=== PATIENT | male | born 1955 | race Caucasian/White ===

== ENCOUNTER 2017-09-01 15:59 | Inpatient (IN) | payer OTHER ==
[~2017-09-01 15:59] MED LIST: Iopamidol 370 76% 100 ML VIAL ONE; Iopamidol 370 76% 50 ML VIAL FS ONE
[2017-09-01] MEDS ORDERED: Lidocaine 1% (PF) 30 ML VIAL ONE (17:32)
[2017-09-01] MEDS ORDERED: Heparin 10,000 UNITS/1 ML VIAL ONE (17:42)
[2017-09-01] MEDS ORDERED: Aggrastat 12.5 MG/250 ML 250 ML ONE (19:22)
[2017-09-01] MEDS ORDERED: Aggrastat 12.5 MG/250 ML 12.5 MG in Premix Bag 1 BAG IVPB SCH (19:52)
[2017-09-01 20:13] VITALS: BMI 27.2
[2017-09-01] MEDS ORDERED: Zolpidem Tartrate 5 MG TAB PO PRN (20:18)
[2017-09-01] MEDS ORDERED: Nitroglycerin 0.4 MG TAB (25 Tab Bottle) SL PRN (20:18)
[2017-09-01] MEDS ORDERED: Acetaminophen/Codeine 30-300mg Tablet PO PRN (20:18)
[2017-09-01] MEDS ORDERED: Heparin 25,000 units/D5W 500 ML IVPB SCH (20:18)
[2017-09-01] MEDS ORDERED: Milk Of Magnesia 30 ML UDCUP PO PRN (20:18)
[2017-09-01] MEDS ORDERED: Heparin 10,000 UNITS/ 10 ML VIAL SLOW IVP SCH (20:18)
[2017-09-01] MEDS ORDERED: DOPamine 400 MG/D5W 250 ML 250 ML ONE (20:34)
[2017-09-01 20:36] LABS: Hemoglobin 12.9 g/dL (14.0-18.0); Platelet Count 194 thou/uL (130-400)
[2017-09-01] MEDS ORDERED: DOPamine 400 MG/D5W 250 ML 250 ML IVPB PRN (20:56)
[2017-09-01] MEDS ORDERED: Sodium Chloride 0.9% 500 ML IVPB SCH (21:00)
[2017-09-01] MEDS ORDERED: TICAGRELOR 90 MG TABLET PO SCH (21:00)
[2017-09-01] MEDS ORDERED: Atorvastatin Calcium 20 MG TAB PO SCH (21:00)
[2017-09-01] MEDS: Metoprolol Tartrate 25 MG TAB PO SCH (21:05)
[2017-09-01] MEDS: Carvedilol 3.125 MG TAB PO SCH (21:05)
[2017-09-01 21:19] LABS: Troponin I 126.935 ng/mL (< 0.028)
[2017-09-01] MEDS: TICAGRELOR 90 MG TABLET PO SCH (21:20)
[2017-09-01] MEDS: Sodium Chloride 0.9% 1,000 ML IV SCH (21:26)
--- NOTE | 2017-09-02 00:10 | HP ---
INDICATION FOR ADMISSION: A 62-year-old patient with acute anterior myocardial ST segment elevation infarction. HISTORY OF PRESENT ILLNESS: This is a 62-year-old gentleman who had no previous cardiac history, but does have a history of hypertension, who was out cutting his grass today and developed chest pain, p resented to the emergency room and was found to be having an acute ST segment elevation myocardial in farction in the anterior leads with inferior reciprocal changes. He was given in the emergency room, heparin and TNK. He continued to have some discomfort. He then was transferred to our facility. E n route with helicopter, he did have some relief of his pain, but approximately 2-3 minutes prior to arriving here, his pain came back, even more severe than previously. When he presented to the emerge ncy room here, his EKG still showed acute ST segment elevation in the anterior leads with reciprocal changes inferiorly. Then he was advised to undergo emergent cardiac catheterization. He had been gonzalez ving some discomfort for the last couple weeks and thought he had some acid reflux. PAST MEDICAL HISTORY: Significant for hypercholesterolemia and hernia repair. He has no early famil y history of coronary artery disease. REVIEW OF SYSTEMS: He wears glasses. He had no pulmonary, GI or complaints except for some possi ble gastroesophageal reflux disease. Remaining of the 12 point review of systems is unremarkable. ALLERGIES: None. MEDICATIONS: He only takes 1 medicine for blood pressure, he is uncertain as to what this is. PHYSICAL EXAMINATION: GENERAL: Reveals a well-developed, well-nourished gentleman who is obviously distressed and having c hest pain, appears to be short of breath and diaphoretic. VITAL SIGNS: Blood pressure was 138/91 in the emergency room, heart rate is 113. HEENT: Shows head to be normocephalic, atraumatic. Carotid pulses are present. I did not hear any bruits. CHEST: Actually clear. I do not any rales, rhonchi or wheezing. CARDIOVASCULAR: Reveals tachycardia with regular rhythm, but no significant murmurs, heaves, thrills , bruits or rubs. ABDOMEN: Flat and soft, and nontender. Positive bowel sounds are present. EXTREMITIES: Showed no clubbing, cyanosis or edema. Pedal pulses are present. NEUROLOGIC: The patient appears to be fully intact. LABORATORY DATA: Still pending. His EKG showed acute ST segment elevation. At this time, due the p dionient's urgent situation. He will be taken emergently to the cardiac slab stripper. I explained to him the procedure and the risks to include bleeding, infection, possibly a myocardial infarction, CVA, re nal insufficiency, allergic contrast reaction, and the possibility of . He understands and agre ed to proceed. Actually his laboratory data show a troponin I of 0.011 with MB of 1.2 taken at 2:45 hours this afternoon. His potassium was 3.6 with creatinine of 1.2 and hemoglobin of 15.3. IMPRESSION: 1. Acute anterior myocardial infarction and otherwise healthy patient. He will be advised to underg o emergent cardiac catheterization 2. History of hypertension. This will be dealt while he is in the hospital, he will [facility] physician. His primary care physician is Dr. Mckenzie in [place].
[2017-09-02] MEDS: Sodium Chloride 0.9% 1,000 ML IV SCH ×2 (07:22→18:09)
[2017-09-02 07:54] LABS: #Lymphocytes 0.9 thou/uL (1.20-3.40); #Monocytes 0.7 thou/uL (0.11-0.59); #Neutrophils 9.3 thou/uL (1.40-6.50); %Eosinophils 0.1 % (0.0-10.0); %Lymphocytes 8.3 % (21.0-51.0); %Monocytes 6.2 % (0.0-10.0); %Neutrophils 85.5 % (42.0-75.0); Hemoglobin 12.9 g/dL (14.0-18.0); Mean Corpuscular HGB CONC 32.6 g/dL (32.0-36.0); Mean Corpuscular Hemoglobin 28.5 pg (27.0-31.0); Mean Corpuscular Volume 87.4 fl (80.0-94.0); Mean Platelet Volume 8.4 fL (7.4-10.4); Platelet Count 187 thou/uL (130-400); RBC Distribution Width 14.7 % (11.5-14.5); Red Blood Cell (RBC) Count 4.54 mill/uL (4.70-6.10); White Blood Cell (WBC) Count 10.9 thou/uL (4.8-10.8)
[2017-09-02 08:12] LABS: ALT (SGPT) 74 U/L (8-55); AST (SGOT) 303 U/L (5-34); Albumin 3.9 g/dL (3.5-5.0); Alkaline Phosphatase 61 U/L (40-150); Anion Gap 13 mmol/L (10-20); BUN (Urea Nitrogen) 20 mg/dL (8.4-25.7); Bilirubin, Total 0.7 mg/dL (0.2-1.2); Calc. Creatinine Clearance 129 mL/min (70-130); Calcium 8.6 mg/dL (7.8-10.44); Carbon Dioxide 18 mmol/L (22-29); Cardiac Risk 4.6 (Less than 4.5); Chloride 110 mmol/L (98-107); Cholesterol 147 mg/dl (< 200 Desired); Estimated GFR-MDRD Greater than 90; Globulin 2.2 g/dL (2.4-3.5); Glucose 132 mg/dL (70-105); HDL Cholesterol 32 mg/dL (>60 Neg Risk); LDL Cholesterol, Calculated 95 mg/dL; Potassium 4.3 mmol/L (3.5-5.1); Protein, Total 6.1 g/dL (6.0-8.3); Sodium 137 mmol/L (136-145); Triglycerides 101 mg/dL (Less than 150)
--- NOTE | 2017-09-02 08:55 | CON ---
DATE OF CONSULTATION: 09/02/2017 HISTORY: This is a 62-year-old pleasant gentleman with history of hypertension. He is from [facility]. He was mowing his lawn and he developed chest pain. He was taken to the ER where he was found to have acute segment elevation anterior leads. There was transferred here and underwent emergency car diac catheterization by Dr. Deleon. Please see Dr. Deleon cardiac cath note. He was given heparin and T NK. He continued to have discomfort. Initial cardiac cath resulted in 1 stent. He came back to the ICU, he was having some more chest pain, went back to the [employer] again, had 2 additional stents placed in. The patient is a nonsmoker, no prior history of pneumonia, TB or asthma. He is a retired groundman/lineman. PAST MEDICAL HISTORY: Hypertension. PAST SURGICAL HISTORY: Hernia operation CHRONIC MEDICATIONS: Blood pressure medication, he is unaware of at this time. ALLERGIES: None. SOCIAL/FAMILY HISTORY: Unremarkable. REVIEW OF SYSTEMS: Otherwise negative. PHYSICAL EXAMINATION: GENERAL: Appears to be in no distress. VITAL SIGNS: Sats 97% on room air, pulse 85, blood pressure 120/79, respiration 21. CHEST: Chest revealed no wheezing or crackles. CARDIAC: Normal S1-S2. No gallops. ABDOMEN: Soft, no masses. LABORATORY: White count 10,000, H&H 12 and 39, platelet count is 187. Troponin 123. EKG shows Q-wa ves in V1 and V2 consistent with a septal infarct. His EKG from [place] did show inferior changes in his EKG. His chemistry profile was normal. His calcium level was 10.8. IMPRESSION: 1. Status post acute inferior myocardial infarction, status post cardiac catheterization with 3 sten ts. Status post TNK infusion. 2. Hypertension. PLAN: The patient pulmonary critical care penaloza appears to be stable. DISPOSITION: As per Cardiology. We will follow while in the ICU. This is a consultation note in the ICU, 70 minutes, 50% spent in direct patient care.
[2017-09-02] MEDS ORDERED: Aspirin 325 MG TAB PO SCH (09:00)
[2017-09-02] MEDS ORDERED: Lisinopril 2.5 MG TAB PO SCH (09:00)
[2017-09-02] MEDS: TICAGRELOR 90 MG TABLET PO SCH ×2 (10:39→21:53)
[2017-09-02] MEDS ORDERED: Carvedilol 3.125 MG TAB PO SCH (10:45)
[2017-09-02] MEDS: Carvedilol 3.125 MG TAB PO SCH (10:48)
[2017-09-02] MEDS: Metoprolol Tartrate 25 MG TAB PO SCH (10:53)
[2017-09-02 11:05] LABS: #Lymphocytes 1.2 thou/uL (1.20-3.40); #Monocytes 0.6 thou/uL (0.11-0.59); #Neutrophils 8.1 thou/uL (1.40-6.50); %Basophils 0.5 % (0.0-1.0); %Eosinophils 0.2 % (0.0-10.0); %Lymphocytes 11.6 % (21.0-51.0); %Monocytes 5.7 % (0.0-10.0); Hemoglobin 12.3 g/dL (14.0-18.0); Mean Corpuscular HGB CONC 32.6 g/dL (32.0-36.0); Mean Corpuscular Hemoglobin 28.9 pg (27.0-31.0); Mean Corpuscular Volume 88.6 fl (80.0-94.0); Mean Platelet Volume 8.1 fL (7.4-10.4); Platelet Count 185 thou/uL (130-400); RBC Distribution Width 14.6 % (11.5-14.5); Red Blood Cell (RBC) Count 4.24 mill/uL (4.70-6.10); White Blood Cell (WBC) Count 9.9 thou/uL (4.8-10.8)
[2017-09-02 11:28] LABS: Anion Gap 13 mmol/L (10-20); BUN (Urea Nitrogen) 18 mg/dL (8.4-25.7); Calc. Creatinine Clearance 117 mL/min (70-130); Calcium 8.8 mg/dL (7.8-10.44); Carbon Dioxide 21 mmol/L (22-29); Chloride 108 mmol/L (98-107); Estimated GFR-MDRD 85; Glucose 148 mg/dL (70-105); Potassium 3.4 mmol/L (3.5-5.1); Sodium 139 mmol/L (136-145)
[2017-09-02 11:56] LABS: CKMB 212.2 ng/mL (0-6.6); Troponin I 64.431 ng/mL (< 0.028)
[2017-09-02] MEDS ORDERED: Atorvastatin Calcium 40 MG TAB PO SCH (21:00)
[2017-09-02] MEDS: Lisinopril 5 MG TAB PO SCH (21:52)
[2017-09-02] MEDS: Carvedilol 6.25 MG TAB PO SCH (21:52)
--- NOTE | 2017-09-03 07:03 | EKG ---
Test Reason : Blood Pressure : / mmHG Vent. Rate : 082 BPM Atrial Rate : 082 BPM P-R Int : 158 ms QRS Dur : 086 ms QT Int : 392 ms P-R-T Axes : 072 051 067 degrees QTc Int : 457 ms Normal sinus rhythm with sinus arrhythmia Septal infarct (cited on or before 01-SEP-2017) Abnormal ECG When compared with ECG of 01-SEP-2017 19:57, (Unconfirmed) Nonspecific T wave abnormality, worse in Anterolateral leads Confirmed by JENI SEARS ([id number]) on 09/03/2017 7:03:37 AM Referred By: ALISA Confirmed By:JENI SEARS
--- NOTE | 2017-09-03 07:11 | EKG ---
Test Reason : STAT Blood Pressure : / mmHG Vent. Rate : 107 BPM Atrial Rate : 107 BPM P-R Int : 146 ms QRS Dur : 082 ms QT Int : 352 ms P-R-T Axes : 066 039 063 degrees QTc Int : 469 ms Sinus tachycardia Septal infarct (cited on or before 01-SEP-2017) Abnormal ECG When compared with ECG of 01-SEP-2017 17:26, (Unconfirmed) Questionable change in QRS duration Questionable change in initial forces of Anteroseptal leads Confirmed by JENI SEARS ([id number]) on 09/03/2017 7:11:44 AM Referred By: ALISA Confirmed By:JENI SEARS
--- NOTE | 2017-09-03 07:12 | EKG ---
Test Reason : Blood Pressure : / mmHG Vent. Rate : 099 BPM Atrial Rate : 099 BPM P-R Int : 156 ms QRS Dur : 144 ms QT Int : 390 ms P-R-T Axes : 071 010 036 degrees QTc Int : 500 ms Normal sinus rhythm Non-specific intra-ventricular conduction block Anteroseptal infarct , possibly acute Lateral injury pattern ACUTE MO / STEMI Abnormal ECG No previous ECGs available Confirmed by JENI SEARS ([id number]) on 09/03/2017 7:12:06 AM Referred By: ALISA Confirmed By:JENI SERAS
[2017-09-03] MEDS: Lisinopril 5 MG TAB PO SCH ×2 (09:40→09:41)
[2017-09-03] MEDS: Carvedilol 6.25 MG TAB PO SCH (09:40)
[2017-09-03] MEDS: TICAGRELOR 90 MG TABLET PO SCH ×2 (09:42→21:32)
[2017-09-03] MEDS ORDERED: Lisinopril 2.5 MG TAB PO SCH ×2 (11:15→21:00)
--- NOTE | 2017-09-03 12:20 | PRG ---
DATE OF SERVICE: 09/03/2017 SUBJECTIVE: Post cardiac cath, multiple stents, doing well. No shortness of breath. OBJECTIVE: VITAL SIGNS: Sats 98% on room air, respirations 16, temperature 99, blood pressure 106/55. CHEST: Reveals no wheezing or crackles. CARDIAC: Normal S1 and S2. No gallops. ABDOMEN: Soft, no masses. LABORATORY DATA: Troponin is 64. White count 9000, H and H is stable. Echo shows EF 30%. IMPRESSION: 1. Coronary artery disease. 2. Myocardial infarction. 3. Congestive heart failure. 4. Multiple stents. PLAN: Continue care as per Cardiology. Pulmonary will follow at a distance. Please call as needed.
[2017-09-03] MEDS: Carvedilol 3.125 MG TAB PO SCH (17:47)
[2017-09-03] MEDS: Sodium Chloride 0.9% 1,000 ML IV SCH ×3 (18:04→20:49)
[2017-09-03 20:22] LABS: Hemoglobin 10.9 g/dL (14.0-18.0); Platelet Count 165 thou/uL (130-400)
[2017-09-03] MEDS ORDERED: Carvedilol 3.125 MG TAB PO SCH (21:00)
[2017-09-03] MEDS: Rosuvastatin 20 MG TAB PO SCH (21:32)
[2017-09-03] MEDS: Lisinopril 2.5 MG TAB PO SCH (21:32)
[2017-09-04 04:51] LABS: Anion Gap 9 mmol/L (10-20); BUN (Urea Nitrogen) 20 mg/dL (8.4-25.7); Calc. Creatinine Clearance 124 mL/min (70-130); Calcium 8.4 mg/dL (7.8-10.44); Carbon Dioxide 21 mmol/L (22-29); Chloride 108 mmol/L (98-107); Estimated GFR-MDRD Greater than 90; Glucose 100 mg/dL (70-105); Potassium 3.9 mmol/L (3.5-5.1); Sodium 134 mmol/L (136-145)
[2017-09-04] MEDS: TICAGRELOR 90 MG TABLET PO SCH ×2 (09:45→21:01)
[2017-09-04] MEDS: Carvedilol 3.125 MG TAB PO SCH ×2 (09:46→17:34)
[2017-09-04] MEDS: Sodium Chloride 0.9% 1,000 ML IV SCH (09:47)
[2017-09-04] MEDS: Lisinopril 2.5 MG TAB PO SCH ×2 (11:50→21:00)
--- NOTE | 2017-09-04 16:36 | PDOC.CTH ---
Cardiology Progress Note - Subjective No new issues. He denies any chest pain, tightness ,pressure, SOB. He has been walking without issues. - Objective Vital Signs Temp Pulse Pulse Pulse Resp BP BP 09/04/17 12:00 97.8 F 84 16 09/04/17 11:50 84 105/63 09/04/17 11:16 90 92 111/69 09/04/17 08:00 97.8 F 84 16 BP BP Pulse Ox Pulse Ox Pulse Ox 09/04/17 12:00 105/63 98 09/04/17 11:50 09/04/17 11:16 105/58 L 100 99 09/04/17 08:00 115/66 97 Weight 211 lb 3.2 oz 09/03/17 09/04/17 09/05/17 06:59 06:59 06:59 Intake Total 1127 810 Output Total 1175 900 Balance -48 -90 - Physical Examination General/Neuro: alert & oriented x3, NAD Neck: no JVD present Lungs: CTA, unlabored respirations Heart: RRR Abdomen: NT/ND Extremities: other: (No edema.) - Telemetry Telemetry Rhythm: NSR - Labs Result Diagrams: 09/03/17 20:05 09/04/17 04:05 Troponin/CKMB CK-MB (CK-2) 212.2 ng/mL (0-6.6) H* 09/02/17 10:52 Troponin I 64.431 ng/mL (< 0.028) H* 09/02/17 10:52 - Assessment/Plan 1. Acute anterior MS 2. S/P Acute in stent thrombosis 3. Severe LV dysfunction. PLAN: - Aspirin and statin for life. - Brilinta for 12 months. - BB and ACEI. - Lifevest placement. - Continue to monitor.
[2017-09-04] MEDS: Rosuvastatin 20 MG TAB PO SCH (21:01)
[2017-09-05] MEDS: TICAGRELOR 90 MG TABLET PO SCH (08:49)
[2017-09-05] MEDS: Carvedilol 3.125 MG TAB PO SCH ×2 (08:49→17:17)
[2017-09-05] MEDS: Lisinopril 2.5 MG TAB PO SCH (11:44)
--- NOTE | 2017-09-05 15:46 | DIS ---
DATE OF ADMISSION: 09/01/2017 DATE OF DISCHARGE: 09/05/2017 DISCHARGING PHYSICIAN: Neil Grover MD. PRIMARY DIAGNOSES: 1. Acute anterior ST elevation myocardial infarction. 2. Severe left ventricular dysfunction, ischemic. INDICATIONS: Mr. Galindo is a 62-year-old white gentleman who came to the hospital for chest pain. He was diagnosed with an anterior ST elevation NV, taken emergently to the catheterization lab where he had his LAD opened. He then had acute in-stent thrombosis within an hour of procedure, had to be taken again to the component lab tech where he was found to have an occluded stent, received thrombectomy and b alloon angioplasty, and a second stent was put this distally to this and this was thought to be a pro blem with a distal flow. He did not walk quite well after that on the . For the last 4 days, he has been very stable, walking around without any problems, tolerating all his medications with no ev idence of bleeding. Telemetry has been stable without any problems. Echocardiogram was performed an d it showed LV function at 25%-30% with large apical NV, mild MR, and mild TR. He will be discharged home today in a stable condition. He will follow up with Dr. Salinas in 2-4 weeks. LifeVest was p lacbrian. DISCHARGE MEDICATIONS: Include, 1. Brilinta 90 mg p.o. b.i.d. 2. Aspirin 81 a day. 3. Carvedilol 3.125 mg p.o. b.i.d. 4. Irbesartan 150 mg tablet, half a tablet daily. 5. Rosuvastatin 40 mg at bedtime. 6. Sublingual nitroglycerin p.r.n. chest pain. Over 30 minutes was spent at bedside for discharge.
[2017-09-05 15:47] VITALS: BP 135/85; TEMP 98.7
--- NOTE | 2017-11-06 16:11 | EKG ---
Test Reason : Blood Pressure : / mmHG Vent. Rate : 089 BPM Atrial Rate : 089 BPM P-R Int : 178 ms QRS Dur : 108 ms QT Int : 364 ms P-R-T Axes : 071 035 042 degrees QTc Int : 442 ms Normal sinus rhythm Anteroseptal infarct , possibly acute Lateral injury pattern * ACUTE AK * Abnormal ECG Confirmed by TATE YANEZ, PATRICIA ([id number]), metropolitan editor JOANN LYON ([id number]) on 11/06/2017 4:11:14 PM Referred By: Confirmed By:PATRICIA YBARRA MD
== END 2017-09-05 17:33 | disposition home or self-care (01) | DRG 249 ==
LOC: ERS 15:59 → CCU 16:04 → ERS 16:04 → CCL 16:28 → CCU 17:00 → 2NO 09-02 17:36
PROVIDERS: ADMIT Internal Medicine Cardiovascular Disease; ATTEND Internal Medicine Cardiovascular Disease
PROC: 02703EZ Dilation of Coronary Artery, One Artery with Two Intraluminal Devices, Percutaneous Approach (ICD-10-PCS; principal; 2017-09-01)
PROC: 02C03ZZ Extirpation of Matter from Coronary Artery, One Artery, Percutaneous Approach (ICD-10-PCS; 2017-09-01)
PROC: 02703DZ Dilation of Coronary Artery, One Artery with Intraluminal Device, Percutaneous Approach (ICD-10-PCS; 2017-09-01)
PROC: 3E033PZ Introduction of Platelet Inhibitor into Peripheral Vein, Percutaneous Approach (ICD-10-PCS; 2017-09-01)
PROC: B221Z2Z Computerized Tomography (CT Scan) of Multiple Coronary Arteries using Intravascular Optical Coherence (ICD-10-PCS; 2017-09-01)
PROC: 4A023N7 Measurement of Cardiac Sampling and Pressure, Left Heart, Percutaneous Approach (ICD-10-PCS; 2017-09-01)
PROC: B2111ZZ Fluoroscopy of Multiple Coronary Arteries using Low Osmolar Contrast (ICD-10-PCS; 2017-09-01)
PROC: B2151ZZ Fluoroscopy of Left Heart using Low Osmolar Contrast (ICD-10-PCS; 2017-09-01)
DX: I21.09 ST elevation (STEMI) myocardial infarction involving other coronary artery of anterior wall (principal); I11.9 Hypertensive heart disease without heart failure; E78.00 Pure hypercholesterolemia, unspecified; T82.867A Thrombosis due to cardiac prosthetic devices, implants and grafts, initial encounter; I22.0 Subsequent ST elevation (STEMI) myocardial infarction of anterior wall; I25.10 Atherosclerotic heart disease of native coronary artery without angina pectoris; I25.9 Chronic ischemic heart disease, unspecified; Z92.82 Status post administration of tPA (rtPA) in a different facility within the last 24 hours prior to admission to current facility
CPT/HCPCS: 36415; 37212; 80048; 80053; 80061; 82553; 84484; 85014; 85018; 85025; 85049; 85347; 85730; 92928; 92933; 92978; 93005; 93010; 93306; 93454; 93458; 93798; A4216; C1725; C1757; C1769; C1876; C1887; J1265; J1644; J2001; J2270; J3246